=== PATIENT | male | born 1995 | race Caucasian/White ===

== ENCOUNTER → 2019-04-20 13:40 | Outpatient (CLI) | payer BC, SELFPAY ==
--- NOTE | 2019-04-20 13:41 | MR_ITS ---
PROCEDURE: MR KNEE RT WO CON CLINICAL INDICATION: Possible ACL tear Twisting knee injury with pain, unable to bear weight, medial sided knee pain and swelling with instability COMPARISON: XR KNEE RT 3V from 04/20/2019 TECHNIQUE: Routine multiplanar multi echo sequences are performed without contrast FINDINGS: The cruciate ligaments appear intact. The medial collateral ligament appears intact. There is mild thickening of the fibular collateral ligament suggesting a grade 1 sprain. No meniscal tear is evident. There slight increased T2 signal within the anterior horn of the lateral meniscus but does not meet strict MRI criteria for meniscal tear. The patellar tendon and quadriceps tendon are intact. There is a large knee joint effusion. Bone marrow edema is present within the proximal tibia laterally there is a minimally depressed lateral tibial plateau fracture. A curvilinear area of decreased T1 and T2 signal is present in the subcortical region the lateral tibial plateau. IMPRESSION: Minimally depressed lateral tibial plateau fracture with bone bruise of the proximal tibia laterally and a large knee joint effusion Grade 1 sprain of the fibular collateral ligament Dictated by: John Ndiaye MD 04/21/2019 07:14 Signed by: <Electronically signed by John Ndiaye MD in [place]> 04/21/2019 07:14
== END ==
LOC: RAD 13:40
PROVIDERS: Visit Provider Orthopaedic Surgery
DX: M25.561 Pain in right knee (principal); S89.90XA Unspecified injury of unspecified lower leg, initial encounter
CPT/HCPCS: 73721

== ENCOUNTER 2019-04-21 13:42 | Outpatient (RCR) | payer BC, SELFPAY | END 2019-04-21 14:00 | disposition home or self-care (01) | LOC: PT 13:42 | PROVIDERS: Visit Provider Orthopaedic Surgery | DX: S89.91XA Unspecified injury of right lower leg, initial encounter (principal) | CPT/HCPCS: 97760 ==

== ENCOUNTER → 2019-05-05 13:00 | Outpatient (CLI) | payer BC, SELFPAY ==
--- NOTE | 2019-05-05 13:32 | XR_ITS ---
PROCEDURE: XR KNEE RT 3V CLINICAL INDICATION: PAIN COMPARISON: XR KNEE RT 3V from 04/20/2019 FINDINGS: No fracture or dislocation. No lytic or blastic change. There is normal mineralization. Minimal osteoarthritic changes are present at the medial compartment and patellofemoral joint. Small suprapatellar effusion noted. Other findings:None. IMPRESSION: Minimal osteoarthritis with suprapatellar effusion Dictated by: John Ndiaye MD 05/05/2019 16:06 Signed by: <Electronically signed by John Ndiaye MD in [place]> 05/05/2019 16:06
== END ==
LOC: RAD 13:03
PROVIDERS: Visit Provider Orthopaedic Surgery
DX: S89.91XA Unspecified injury of right lower leg, initial encounter (principal)
CPT/HCPCS: 73562

== ENCOUNTER → 2019-06-05 12:58 | Outpatient (CLI) | payer BC, SELFPAY ==
--- NOTE | 2019-06-05 13:03 | XR_ITS ---
PROCEDURE: XR KNEE RT 4V CLINICAL INDICATION: Rt knee pain COMPARISON: XR KNEE RT 3V from 04/20/2019 XR KNEE RT 3V from 05/05/2019 FINDINGS: No fracture or dislocation. No lytic or blastic change. There is normal mineralization. The joint spaces are well-preserved. No significant degenerative/arthritic changes. No erosive changes evident. Other findings:None. IMPRESSION: No acute fracture and interval resolution of the small suprapatellar joint effusion. Dictated by: Joshua Vera 06/05/2019 15:05 Electronically signed by Joshua Vera in [place] 06/05/2019 15:05
== END ==
LOC: RAD 13:00
PROVIDERS: Visit Provider Orthopaedic Surgery
DX: S82.141D Displaced bicondylar fracture of right tibia, subsequent encounter for closed fracture with routine healing (principal)
CPT/HCPCS: 73564

== ENCOUNTER 2019-06-05 15:00 | Outpatient (RCR) | payer BC, SELFPAY ==
--- NOTE | 2019-04-25 15:50 | [facility].PTOPEV ---
PT Outpatient Evaluation Rehab PT Outpatient Evaluation Start: 04/25/19 15:26 Freq: Status: Active Protocol: Document 04/25/19 15:27 STANISLAVCAMERON (Rec: 04/25/19 15:50 EHSAN [id number]) Electronically Signed By Alexsander Prado, PT 04/25/19 15:27 Outpatient Therapy Subjective History Subjective History Pt. referred post lateral R tibial plateau fx. Injury happened on while playing recreational basketbal after he landed awkwardly on his R leg. Pt. has been instructed to be NWB on his R side. Pt. has been icing and resting his leg at home. Note and eval done by student PT Rashid Garland Chief Complaint Pain Symptom Type Sharp Symptoms Relieved By Rest/Positioning Symptoms Aggravated By Standing,Physical Activity, Walking Prior Functional Limitations None Current Functional Limitations Standing,Squatting,Recreation Activity,Walking,Stairs Symptom Description Intermittent Level of pain today (0-10) 1 Pain scale - at its best (0-10) 1 Pain scale - at its worst (0-10) 7 Hip/Knee Eval Assistive Device Assistive Devices Axillary Crutches MMT left Hip Strength Reason Not Measured WFL Knee Strength Reason Not Measured WFL right Hip Strength Reason Not Measured Orthopedic Precautions Knee Strength Reason Not Measured Orthopedic Precautions ROM left Hip ROM Reason Not Measured Within Functional Limits Knee Extension Active Range of Motion ( 0 degrees) Knee Flexion Active Range of Motion ( 130 degrees) right Hip ROM Reason Not Measured Orthopedic Precautions,Brace Knee ROM Reason Not Measured Orthopedic Precautions,Brace Outpatient Therapy Assessment Impairments Problems/Impairmments Impaired Range of Motion, Impaired Standing,Impaired Stair Climbing,Impaired Squatting,Impaired Recreational Activities, Impaired Running,Impaired Jumping Prognosis Rehab Potential Good Clinical Impression Consistent with Diagnosis Yes Consistent with R lateral Tibial Plateau fx Short Term Goals Number of Weeks 6 Increase Range of Motion Yes: 0-90 per protocol Increase Strength Yes: per M.D. protocol Patient to be Ind w/ HEP
== END 2019-06-05 15:05 | disposition home or self-care (01) ==
LOC: PT 15:00
PROVIDERS: Visit Provider Orthopaedic Surgery
DX: S82.141D Displaced bicondylar fracture of right tibia, subsequent encounter for closed fracture with routine healing (principal)
CPT/HCPCS: 97110; 97163; 97164